=== PATIENT | female | born 1935 | race Caucasian/White ===

== ENCOUNTER → 2016-04-16 09:07 | Outpatient (CLI) | payer MEDICARE, OTHER ==
[2016-04-17 09:19] LABS: IMMUNOGLOBULIN E 8 IU/mL (0-100)
== END | disposition home or self-care (01) ==
LOC: D.RT 09:07
PROVIDERS: Internal Medicine Pulmonary Disease
DX: J44.9 Chronic obstructive pulmonary disease, unspecified (principal)

== ENCOUNTER → 2017-11-27 10:49 | Outpatient (CLI) | payer MEDICARE, OTHER | END | disposition home or self-care (01) | LOC: D.LAB 10:15 → D.RT 10:49 | DX: J44.9 Chronic obstructive pulmonary disease, unspecified (principal) ==

== ENCOUNTER → 2018-06-14 08:18 | Outpatient (CLI) | payer MEDICARE, OTHER | END | disposition home or self-care (01) | LOC: D.RT 06-09 08:00 | PROVIDERS: ATTEND Nurse Practitioner Acute Care | DX: J44.9 Chronic obstructive pulmonary disease, unspecified (principal) ==